=== PATIENT | male | born 2000 | race Caucasian/White ===

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

== ENCOUNTER → 2022-05-31 12:42 | Outpatient (BNVA) | payer MEDICAID, SELFPAY | PROVIDERS: Visit Provider Emergency Medicine | DX: N52.9 Male erectile dysfunction, unspecified (principal); R53.83 Other fatigue; R53.82 Chronic fatigue, unspecified | CPT/HCPCS: 80048; 82607; 84402; 84403; 84439; 84443; 85025 ==

== ENCOUNTER → 2023-07-15 12:18 | Outpatient (BNVA) | payer MEDICAID, SELFPAY | PROVIDERS: PCP Family Medicine; Referring Provider Family Medicine; Visit Provider Family Medicine | DX: N45.1 Epididymitis (principal); N43.3 Hydrocele, unspecified | CPT/HCPCS: 81000; 87086 ==

== ENCOUNTER → 2024-06-07 10:30 | Outpatient (BNVA) | payer BC, MEDICAID, SELFPAY | PROVIDERS: PCP Family Medicine; Visit Provider Family Medicine | DX: Z13.1 Encounter for screening for diabetes mellitus (principal); F32.A Depression, unspecified; F41.9 Anxiety disorder, unspecified; Z68.1 Body mass index [BMI] 19.9 or less, adult; R53.83 Other fatigue; R25.2 Cramp and spasm | CPT/HCPCS: 80053; 83540; 83735; 85025 ==